=== PATIENT | male | born 1980 | race African-American/Black ===

== ENCOUNTER 2021-04-20 16:08 | Emergency (ER) | payer SELFPAY ==
--- NOTE | ~2021-04-20 | CT_ITS ---
EXAMINATION: CT BRAIN W/O DATE: 04/20/2021 17:42 INDICATION: Head injury. Trauma. TECHNIQUE: Computed tomography (CT) of the head was performed without intravenous contrast. The dose- length product was 681.00 mGy-cm. Automated exposure control and iterative reconstruction technique w ere employed. COMPARISON: No prior studies for comparison. FINDINGS: Normal brain parenchymal volume for age. Normal bautista-white differentiation. No acute intrac ranial hemorrhage, infarction, mass or mass effect. No ventriculomegaly or midline shift. Midline sagittal images demonstrate a normal corpus callosum, c raniovertebral junction and sella turcica. Basilar cisterns are patent. There is mild mucosal thickening of the maxillary sinuses. Mastoids are pneumatized. No depressed sku ll fractures. Study limited by motion artifact. IMPRESSION: 1. No acute intracranial abnormality. Reviewed, dictated and finalized at location A.
--- NOTE | ~2021-04-20 | CT_ITS ---
EXAMINATION: CT cervical spine wo con, CT facial bones wo con DATE: 04/20/2021 17:42 (accession [id number]), 04/20/2021 17:43 (accession [id number]) INDICATION: Head injury. Neck pain after trauma. TECHNIQUE: Computed tomography (CT) of the maxillofacial region and cervical spine was performed with out intravenous contrast. The dose-length product was 681.00 mGy-cm. Automated exposure control and i terative reconstruction technique were employed. COMPARISON: None FINDINGS: MAXILLOFACIAL CT: There is mild mucosal thickening of the maxillary sinuses. Nasal bones, orbits, mandible, temporomand ibular joints, pterygoid plates and zygomatic arches are within normal limits. There are multiple nubia ateral dental caries. Mild symmetric degenerative changes of the temporomandibular joints. There are multiple cervical lymph nodes, likely reactive. CERVICAL SPINE CT: Cervical spine in normal anatomic alignment. There is straightening of cervical lordosis, possibly du e to positioning or muscle spasm. Vertebral body heights are maintained. No significant disc narrowin g. Odontoid process within normal limits. Lung apices are normal. No evidence for perched facet. Spin ous processes are intact. IMPRESSION: 1. No acute abnormality of the cervical spine or facial bones. 2: Dental caries. Cervical lymphadenopathy, likely reactive. Reviewed, dictated and finalized at location A. IMPRESSION: 1. No acute abnormality of the cervical spine or facial bones. 2: Dental caries. Cervical lymphadenopathy, likely reactive.
[2021-04-20 16:05] VITALS: BP 132/75; PULSE 75; RESP 16; TEMP 36.8; O2SAT 99
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
--- NOTE | 2021-04-20 17:33 | PC.NURSE ---
Pt off floor for CT scan
[2021-04-20 18:15] VITALS: BP 131/86; PULSE 67; RESP 16; O2SAT 100
== END 2021-04-20 18:16 | disposition home or self-care (01) ==
PROVIDERS: Emergency Provider Nurse Practitioner
DX: S09.90XA Unspecified injury of head, initial encounter (principal); M54.2 Cervicalgia; W24.0XXA Contact with lifting devices, not elsewhere classified, initial encounter
CPT/HCPCS: 70450; 70486; 72125; 99284